=== PATIENT | male | born 1980 | race African-American/Black ===

== ENCOUNTER 2021-09-18 08:29 | Emergency (ER) | payer BC, MEDICAID ==
[~2021-09-18] VITALS: Ht 167.6 cm; Wt 89.0 kg
[2021-09-18 10:32] VITALS: BP 119/77
== END 2021-09-18 10:34 | disposition home or self-care (01) ==
LOC: ER 08:29
DX: R07.89 Other chest pain (principal); F12.10 Cannabis abuse, uncomplicated; F17.210 Nicotine dependence, cigarettes, uncomplicated; Z57.2 Occupational exposure to dust
CPT/HCPCS: 71045; 93005; 99283

== ENCOUNTER 2023-08-25 07:49 | Emergency (ER) | payer BC, MEDICAID ==
[~2023-08-25] VITALS: Ht 190.5 cm; Wt 115.0 kg
[2023-08-25 07:52] VITALS: BP 150/82; PULSE 86; RESP 20; TEMP 98.2; O2SAT 100
[2023-08-25] MEDS: LIDOCAINE HCL/PF 1% 10 MG/ML 5ML VIAL INFIL ONE (08:00)
[2023-08-25] MEDS ORDERED: DOXY100T2 MT (08:01)
[2023-08-25 08:06] LABS: CLARITY URINE CLEAR (CLEAR); COLOR URINE YELLOW (YELLOW); GLUCOSE URINE NEGATIVE (NEGATIVE); KETONES URINE TRACE (NEGATIVE); LEUKOCYTE ESTERASE URINE TRACE (NEGATIVE); NITRITE URINE NEGATIVE (NEGATIVE); OCCULT BLOOD URINE NEGATIVE (NEGATIVE); PH URINE 5.5 (4.5-8.0); PROTEIN URINE NEGATIVE (NEGATIVE); SPECIFIC GRAVITY URINE 1.023 (1.005-1.030)
[2023-08-25 08:18] LABS: RBC URINE NONE SEEN /hpf (0-2); SQUAMOUS EPITHELIAL CELL URINE RARE /lpf (RARE/1+)
[2023-08-25 08:19] LABS: BACTERIA URINE FEW; YEAST URINE NONE SEEN
[2023-08-25] MEDS: CEFTRIAXONE SODIUM 500MG VIAL IM ONE (08:23)
[2023-08-28 04:08] LABS: CHLAMYDIA TRACHOMATIS NAA Negative (Negative); NEISSERIA GONORRHOEAE NAA Negative (Negative)
== END 2023-08-25 08:30 | disposition home or self-care (01) ==
LOC: ER 07:49
DX: A54.01 Gonococcal cystitis and urethritis, unspecified (principal); F12.90 Cannabis use, unspecified, uncomplicated
CPT/HCPCS: 99283; 87491; 87591; 81003; 96372; J0696; J3490

== ENCOUNTER 2024-09-16 00:06 | Emergency (ER) | payer MEDICAID ==
[~2024-09-16] VITALS: Ht 177.8 cm; Wt 127.0 kg
[~2024-09-16 00:06] MED LIST: DOXY100T2 MT
[2024-09-16 00:20] VITALS: O2SAT 97
[2024-09-16] MEDS: BACITRACIN ZINC OINT UDPKT TOP ONE (01:45)
[2024-09-16] MEDS: LIDOCAINE HCL/PF 1% 10 MG/ML 5ML VIAL INFIL ONE (01:45)
[2024-09-16] MEDS ORDERED: TETANUS, DIPHTHERIA, PERTUSSIS VAC/PF 0.5ML (>10YR OLD) IM ONE (01:45)
[2024-09-16] MEDS: TETANUS, DIPHTHERIA, PERTUSSIS VAC/PF 0.5ML (>10YR OLD) IM ONE (04:02)
[2024-09-16 04:03] VITALS: BP 128/86; PULSE 64; RESP 15; TEMP 36.7; O2SAT 97
== END 2024-09-16 04:04 | disposition home or self-care (01) ==
LOC: ER 00:06
DX: S61.211A Laceration without foreign body of left index finger without damage to nail, initial encounter (principal); W26.0XXA Contact with knife, initial encounter; Y93.89 Activity, other specified; Y92.89 Other specified places as the place of occurrence of the external cause; Y99.8 Other external cause status
CPT/HCPCS: 90715; 12002; 90471; 99283; J2003; Z7610 ×2